=== PATIENT | female | born 1945 | race Caucasian/White ===

== ENCOUNTER → 2024-08-31 20:00 | Outpatient (REF) | payer MEDICARE, SELFPAY ==
[2024-09-01 20:13] LABS: Urine Character Slightly Cloudy (Clear)
[2024-09-01 20:14] LABS: Urine Red Blood Cell >100 /HPF (0-2); Urine White Cell >100 /HPF (0-5)
== END ==
LOC: OLABN 20:00
PROVIDERS: ATTENDING PHYSICIAN Student in an Organized Health Care Education/Training Program
DX: R35.0 Frequency of micturition (principal)
CPT/HCPCS: 81003; 81015; 87086

== ENCOUNTER → 2024-09-05 05:00 | Outpatient (REF) | payer MEDICARE, SELFPAY ==
[2024-09-05 14:21] LABS: Urine Character Clear (Clear)
[2024-09-05 14:34] LABS: Urine White Cell 26-30 /HPF (0-5)
== END ==
LOC: OLABN 05:00
PROVIDERS: ATTENDING PHYSICIAN Student in an Organized Health Care Education/Training Program
DX: R35.0 Frequency of micturition (principal)
CPT/HCPCS: 81003; 81015; 87086